=== PATIENT | male | born 1965 | race Caucasian/White ===

== ENCOUNTER 2017-05-09 16:36 | Emergency (ER) | payer MEDICARE ==
[~2017-05-09] VITALS: Ht 170.2 cm; Wt 65.0 kg
[2017-05-09 16:50] VITALS: Ht 170.2 cm; Wt 65.0 kg
[2017-05-09] MEDS ORDERED: LORAZEPAM 1 MG TAB PO ONE (17:00)
--- NOTE | 2017-05-09 17:07 | ERD ---
ER Documentation Chief Complaint Chief Complaint BIB RA FOR EVAL OF ANXIETY NO SI/HI. HX OF PTSD HPI This is a 51-year-old male who presents via EMS stating that he is having a "PTSD cloud ". EMS reports that the patient was in an argument with his earlier today this was a verbal argument. The patient was upset and called them initially. He refused transport. He then called back for transport. The patient states that he needs " my whole body looked ". The patient has a remote history of dialysis he is not currently getting dialysis. The patient's blood pressure was elevated via EMS. He denies any chest pain or shortness of breath, no headache. The patient has chronic blindness in states that his vision is unchanged. He denies any fevers or chills. No suicidal or homicidal ideation. ROS All systems reviewed and are negative except as per history of present illness. Allergies Allergies: Coded Allergies: gabapentin (Verified Allergy, Unknown, 05/09/17) metoclopramide (Verified Allergy, Unknown, 05/09/17) Uncoded Allergies: CONTRAST (Allergy, Unknown, 05/09/17) PMhx/Soc Hypertension, chronic kidney disease FmHx Family History: No diabetes Physical Exam Vitals Vital Signs Date Time Temp Pulse Resp B/P Pulse Ox O2 Delivery O2 Flow Rate FiO2 05/09/17 17:24 75 18 195/108 100 Room Air 05/09/17 16:50 97.5 75 16 210/59 97 Physical Exam General: Well developed, well nourished, no acute distress Head: Normocephalic, atraumatic. Eyes: Changes consistent with chronic blindness ENT: Moist mucous membranes Neck: Supple, no lymphadenopathy Respiratory: Lungs clear bilaterally, no distress Cardiovascular: RRR, no murmurs, rubs, or gallops Abdominal: Soft, non-tender, non-distended, no peritoneal signs : Deferred MSK: No edema, no unilateral swelling, 5/5 strength, left upper extremity AV fistula with bruit and thrill Neurologic: Alert and oriented, moving all extremities, normal speech, no focal weakness, no cerebellar signs Skin: No rash Psych: Extremely anxious mood, no suicidal or homicidal ideation Results 24 hrs Current Medications Medications (Trade) Dose Ordered Sig/Trace Route PRN Reason Start Time Stop Time Status Last Admin Dose Admin Lorazepam (Ativan) 1 mg ONCE ONCE PO 05/09/17 17:00 05/09/17 17:01 DC 05/09/17 16:59 Nicardipine HCl (Cardene) 30 mg ONCE ONCE PO 05/09/17 18:00 05/09/17 18:01 DC 05/09/17 17:40 Procedures/MDM The patient presents for evaluation of anxiety and PTSD exacerbation. It appears this was triggered related to a social issue with his . There is no physical abuse reported. The patient is a very poor historian and uses hyperbole. He states that he is "all alone at home ". However the paramedics report that the patient has regularly scheduled home health care and lives with his . The patient is denying any headache chest pain or shortness of breath. He states compliance with his medication regimen. The only abnormality that I notice from baseline is that his blood pressure is elevated. This is consistent with asymptomatic hypertension. I do not believe this is related to transplant rejection. This seems to be most likely related to the patient's stress and anxiety. The patient does take benzodiazepines at home and I believe a single tablet of Ativan 1 mg p.o. here is appropriate. The patient will be reevaluated for blood pressure improvement. The patient was advised to follow-up with his primary care physician for routine checking of his blood pressure and to re-address the patient's anxiety and psychiatric medications. He does not have any evidence of acute psychosis or need for telemetry medicine psychiatry evaluation. The patient states that he would like to call his uncle to take him home. We have made this phone call and left a message for his uncle , Akshat. I attempted to consult social work who is not available currently. The patient's blood pressure was trending down into the 190s but the patient felt strongly about getting a dose of medication here in the emergency room. He still seems upset and is talking to his on the phone. His is coming to get him. He was given 30 mg of p.o. Cardene with improvement of his blood pressure into the 140s. The patient left prior to being given his discharge paperwork. Departure Diagnosis: Primary Impression: PTSD (post-traumatic stress disorder) Additional Impressions: Stress reaction Asymptomatic hypertension Condition: Stable Patient Instructions: Understanding Post-Traumatic Stress Disorder (PTSD), High Blood Pressure (Hypertension) Referrals: COMMUNITY CLINICS YOU HAVE RECEIVED A MEDICAL SCREENING EXAM AND THE RESULTS INDICATE THAT YOU DO NOT HAVE A CONDITION THAT REQUIRES URGENT TREATMENT IN THE EMERGENCY DEPARTMENT. FURTHER EVALUATION AND TREATMENT OF YOUR CONDITION CAN WAIT UNTIL YOU ARE SEEN IN YOUR DOCTORS OFFICE WITHIN THE NEXT 1-2 DAYS. IT IS YOUR RESPONSIBILITY TO MAKE AN APPOINTMENT FOR FOLOW-UP CARE. IF YOU HAVE A PRIMARY DOCTOR --you should call your primary doctor and schedule an appointment IF YOU DO NOT HAVE A PRIMARY DOCTOR YOU CAN CALL OUR PHYSICIAN REFERRAL HOTLINE AT IF YOU CAN NOT AFFORD TO SEE A PHYSICIAN YOU CAN CHOSE FROM THE FOLLOWING [facility] CLINICS [facility] [address] [facility] [address] [facility] [facility] [address] [facility] [address] [facility] [address] [facility]. [facility] [address] [facility]. [facility] YOU HAVE RECEIVED A MEDICAL SCREENING EXAM AND THE RESULTS INDICATE THAT YOU DO NOT HAVE A CONDITION THAT REQUIRES URGENT TREATMENT IN THE EMERGENCY DEPARTMENT. FURTHER EVALUATION AND TREATMENT OF YOUR CONDITION CAN WAIT UNTIL YOU ARE SEEN IN YOUR DOCTORS OFFICE WITHIN THE NEXT 1-2 DAYS. IT IS YOUR RESPONSIBILITY TO MAKE AN APPOINTMENT FOR FOLOW-UP CARE. IF YOU HAVE A PRIMARY DOCTOR --you should call your primary doctor and schedule and appointment IF YOU DO NOT HAVE A PRIMARY DOCTOR YOU CAN CALL OUR PHYSICIAN REFERRAL HOTLINE AT . IF YOU CAN NOT AFFORD TO SEE A PHYSICIAN YOU CAN CHOSE FROM THE FOLLOWING [facility] INSTITUTIONS: [facility] [address] [place] [address] [facility] [address] [place] [address] [facility] + [facility] [address] [place] [address] Additional Instructions: Please follow up with your PMD and discuss your medications. Return sooner for thoughts of harming yourself or others. SABINE BOO MD May 09, 2017 17:07
[2017-05-09 18:00] VITALS: BP 140/80; PULSE 75; RESP 16
[2017-05-09] MEDS ORDERED: NICARDipine HCL 30 MG CAPSULE PO ONE (18:00)
== END 2017-05-09 18:16 | disposition home or self-care (01) ==
LOC: E/R 16:36
DX: F43.10 Post-traumatic stress disorder, unspecified (principal); F43.9 Reaction to severe stress, unspecified; I12.9 Hypertensive chronic kidney disease with stage 1 through stage 4 chronic kidney disease, or unspecified chronic kidney disease; N18.9 Chronic kidney disease, unspecified
CPT/HCPCS: 99284

== ENCOUNTER 2018-10-02 20:22 | Observation (INO) | payer MEDICARE, OTHER ==
[~2018-10-02] VITALS: Ht 170.2 cm; Wt 78.0 kg
--- NOTE | 2018-10-02 22:44 | ERD ---
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 No associated shortness breath diaphoresis nausea vomiting fevers or chills. Denies any positional or exertional component to the pain. Denies any other current issues. ROS All systems reviewed and are negative except as per history of present illness. Allergies Allergies: Coded Allergies: gabapentin (Verified Allergy, Unknown, 05/09/17) metoclopramide (Verified Allergy, Unknown, 05/09/17) Uncoded Allergies: CONTRAST (Allergy, Unknown, 05/09/17) PMhx/Soc History of Surgery: Yes (KIDNEY & PANCREATIC TRANSPLANT, EYE SX) Anesthesia Reaction: No Hx Neurological Disorder: Yes (NEUROPATHY, EPILEPSY) Hx Respiratory Disorders: No Hx Cardiac Disorders: Yes (HTN) Hx Psychiatric Problems: No Hx Miscellaneous Medical Probl: Yes (DM, LEGALLY BLIND) Hx Alcohol Use: No Hx Substance Use: No Hx Tobacco Use: No Smoking Status: Never smoker Physical Exam Vitals Vital Signs Date Temp Pulse Resp B/P (MAP) Pulse Ox O2 O2 Flow FiO2 Time Delivery Rate 10/02/18 72 17 178/88 99 Room Air 20:45 (118) 10/02/18 97.9 70 20 182/94 100 20:35 (123) Physical Exam Const: No acute distress Head: Atraumatic Eyes: Normal Conjunctiva ENT: Normal External Ears, Nose and Mouth. Neck: Full range of motion. No meningismus. Resp: Clear to auscultation bilaterally Cardio: Regular rate and rhythm, no murmurs Abd: Soft, non tender, non distended. Normal bowel sounds Skin: No petechiae or rashes Back: No midline or flank tenderness Ext: No cyanosis, or edema Neur: Awake and alert Psych: Normal Mood and Affect Result Diagram: 10/02/18205310/02/182053 Results 24 hrs Laboratory Tests Test 10/02/18 20:54 White Blood Count 9.7 10^3/ul Red Blood Count 4.94 10^6/ul Hemoglobin 14.2 g/dl Hematocrit 46.4 % Mean Corpuscular Volume 93.9 fl Mean Corpuscular Hemoglobin 28.7 pg Mean Corpuscular Hemoglobin Concent 30.6 g/dl Red Cell Distribution Width 15.0 % Platelet Count 220 10^3/UL Mean Platelet Volume 11.1 fl Immature Granulocytes % 0.400 % Neutrophils % 75.6 % Lymphocytes % 15.1 % Monocytes % 8.2 % Eosinophils % 0.5 % Basophils % 0.2 % Nucleated Red Blood Cells % 0.0 /100WBC Immature Granulocytes # 0.040 10^3/ul Neutrophils # 7.3 10^3/ul Lymphocytes # 1.5 10^3/ul Monocytes # 0.8 10^3/ul Eosinophils # 0.1 10^3/ul Basophils # 0.0 10^3/ul Nucleated Red Blood Cells # 0.0 10^3/ul Sodium Level 142 mmol/L Potassium Level 5.6 mmol/L Chloride Level 106 mmol/L Carbon Dioxide Level 28 mmol/L Anion Gap 8 Blood Urea Nitrogen 33 mg/dl Creatinine 1.57 mg/dl Est Glomerular Filtrat Rate mL/min 47 mL/min Glucose Level 118 mg/dl Calcium Level 10.5 mg/dl Troponin I 0.035 ng/ml Procedures/MDM Emergency room course: Patient Jannette charges. Placed in bed from evaluation. A stat EKG and stat chest x-ray. Placed on continuous cardiac monitoring. Chest X-ray 1V Interpreted by me: Soft Tissue: No acute abnormalities Bones: No acute abnormalities Mediastinum/Cardiac Silhouette/Lungs: [No acute abnormalities] EKG: Rate/Rhythm: [Normal Sinus Rhythm] QRS, ST, T-waves: [No changes consistent w/ acute ischemia] Impression: [No evidence of ischemia or arrhythmia] Patient's symptoms are concerning for cardiac cause will require inpatient workup and continuous monitoring. Further w/u for ischemia, arrhythmia, PE or dissection will be deferred to the inpatient team. Accepting Care Team: Current data and ongoing care discussed. Time: 10 PM Primary Provider: Hospitalist Consulting: Deferred to inpatient team Outstanding Data: none Departure Diagnosis: Primary Impression: Chest pain Chest pain type: unspecified Qualified Codes: R07.9 - Chest pain, unspecified Condition: Serious DANIELPARISHFRIDADANNYAdan Oct 02, 2018 22:44
[2018-10-02 23:15] VITALS: BP 196/91; PULSE 66; RESP 20
[2018-10-02 23:25] VITALS: PULSE 68
[2018-10-02 23:33] VITALS: Ht 170.2 cm; Wt 78.0 kg
--- NOTE | 2018-10-02 23:55 | HP ---
Date/Time of Note Date/Time of Note DATE: 10/02/18 TIME: 23:55 Assessment/Plan VTE Prophylaxis Pharmacological prophylaxis: heparin Lines/Catheters IV Catheter Type (from Nrsg): Saline Lock Assessment/Plan Assessment/Plan 1. Chest pain/discomfort: Rule out ACS -First troponin and EKG nondiagnostic -Serial troponin -2D echo cardiology consult -Aspirin, sedated nitro. No beta-juancho given heart rate sometimes in the lower side. -Check A1c, fasting lipid and TSH in a.m. 2. History of diabetes: Check A1c 3. Hypertension: Adjust antihypertensives as needed 4. Presumed CKD -Pt is s/p kidney transplant. He used to be on dialysis -Will hydrate for possible acute component -Renal ultrasound and nephrology consult as needed -He has an appt today with his back facer at [facility] and he wants someone to call them 5. 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 -Patient reported "petit seizure" prior to chest discomfort -continue home meds -Neurology consult as needed 6. history of Pancreatic transplant; no acute issue 7. Legally blind; supportive care Result Diagram: 10/02/18205310/02/182053 Results 24hrs Laboratory Tests Test 10/02/18 20:54 White Blood Count 9.7 Red Blood Count 4.94 Hemoglobin 14.2 Hematocrit 46.4 Mean Corpuscular Volume 93.9 Mean Corpuscular Hemoglobin 28.7 L Mean Corpuscular Hemoglobin Concent 30.6 L Red Cell Distribution Width 15.0 H Platelet Count 220 Mean Platelet Volume 11.1 H Immature Granulocytes % 0.400 Neutrophils % 75.6 Lymphocytes % 15.1 Monocytes % 8.2 Eosinophils % 0.5 Basophils % 0.2 Nucleated Red Blood Cells % 0.0 Immature Granulocytes # 0.040 H Neutrophils # 7.3 Lymphocytes # 1.5 Monocytes # 0.8 Eosinophils # 0.1 Basophils # 0.0 Nucleated Red Blood Cells # 0.0 Sodium Level 142 Potassium Level 5.6 H Chloride Level 106 Carbon Dioxide Level 28 Anion Gap 8 Blood Urea Nitrogen 33 H Creatinine 1.57 H Est Glomerular Filtrat Rate mL/min 47 L Glucose Level 118 Calcium Level 10.5 H Troponin I 0.035 HPI/ROS Admit Date/Time Admit Date/Time Oct 02, 2018 at 22:05 Hx of Present Illness This is a 53-year-old male with a history of hypertension, diabetes, seizure, kidney, pancreas transplant, spinal surgery and "heart attacks"who presents the ER complaining of chest discomfort. It started a few hours before arrival to the ER when he woke-up from sleep. He said he felt like he had a "petit seizure and then felt his heart "seizing and throbbing. Denied shortness of breath, nausea/vomiting or diaphoresis. And presented to ER, vitals were stable. First troponin is negative and EKG without ST-T wave abnormalities. PMH/Family/Social Past Medical History Medical History: other (See HPI) Coded Allergies: gabapentin (Verified Allergy, Unknown, 05/09/17) metoclopramide (Verified Allergy, Unknown, 05/09/17) Uncoded Allergies: CONTRAST (Allergy, Unknown, 05/09/17) Past Surgical History Past Surgical Hx: other (See HPI) Family History Significant Family History: no pertinent family hx Social History Alcohol Use: none Smoking Status: Never smoker Drug Use: none Exam/Review of Systems Vital Signs Vitals Vital Signs Date Temp Pulse Resp B/P (MAP) Pulse Ox O2 O2 Flow FiO2 Time Delivery Rate 10/02/18 68 23:25 10/02/18 18 145/68 97 Room Air 23:00 (93) 10/02/18 97.9 20:35 Exam Constitutional: alert, oriented, well developed Head: normocephalic, atraumatic Eyes: other (blind) Respiratory: clear to auscultation, normal air movement Cardiovascular: regular rate and rhythm Gastrointestinal: soft Extremities: normal pulses DANNY LAKE MD Oct 02, 2018 23:55
[2018-10-03] VITALS (10 sets, daily range): BP systolic 133–150; BP diastolic 67–82; PULSE 56–64; RESP 18–20
[2018-10-03] MEDS ORDERED: NITROGLYCERIN (SL) 0.4 MG TAB SL PRN
[2018-10-03] MEDS ORDERED: ONDANSETRON 4 MG INJ IV PRN
[2018-10-03] MEDS ORDERED: ACETAMINOPHEN 325 MG TAB PO PRN
[2018-10-03] MEDS ORDERED: ALBUTEROL/IPRATROPIUM (NEB) 3 ML AMP HHN PRN
[2018-10-03] MEDS ORDERED: NACL 0.9% 3 ML SYG IV SCH
[2018-10-03] MEDS ORDERED: ALPRAZOLAM 1 MG TAB PO ONE (01:00)
[2018-10-03] MEDS ORDERED: hydrALAzine 20 MG INJ IV ONE (01:00)
[2018-10-03] MEDS ORDERED: NA POLYST SULFON 15 GM/60 ML BTL PO ONE (01:30)
[2018-10-03] MEDS ORDERED: OXYCODONE/ACETAMINOPHEN (5/325) TAB PO ONE (03:00)
[2018-10-03] MEDS ORDERED: ASPIRIN 81 MG TAB PO SCH (09:00)
[2018-10-03] MEDS ORDERED: HEPARIN 5,000 UNIT/1 ML VIAL SC SCH (09:00)
[2018-10-03] MEDS ORDERED: ASPI-818 PO (09:14)
[2018-10-03] MEDS ORDERED: LANS30CA PO (09:14)
[2018-10-03] MEDS ORDERED: CLOP75TA27 PO (09:14)
[2018-10-03] MEDS ORDERED: LEVO5TAB28 PO (09:14)
[2018-10-03] MEDS ORDERED: CYCL100C20 PO (09:14)
[2018-10-03] MEDS ORDERED: ALPR1TAB2 PO (09:14)
[2018-10-03] MEDS ORDERED: MYCO250C3 PO (09:14)
[2018-10-03] MEDS ORDERED: LEVE750T70 PO (09:14)
[2018-10-03] MEDS ORDERED: LUBI24CA7 PO (09:14)
[2018-10-03] MEDS ORDERED: TEST75GE7 TD (09:14)
[2018-10-03] MEDS ORDERED: ASPIRIN (EC) 81 MG TAB PO SCH (11:00)
[2018-10-03] MEDS ORDERED: CYCLOSPORINE MICROEMULS 100 MG CAP PO SCH ×2 (11:00→12:30)
[2018-10-03] MEDS ORDERED: CLOPIDOGREL 75 MG TAB PO SCH (11:00)
[2018-10-03] MEDS ORDERED: ALPRAZOLAM 1 MG TAB PO PRN (11:00)
[2018-10-03] MEDS ORDERED: MYCOPHENOLATE 250 MG CAP PO SCH (12:30)
[2018-10-03] MEDS ORDERED: LEVETIRACETAM 750 MG TAB PO SCH (12:30)
[2018-10-03] MEDS ORDERED: CYCLOSPORINE MICROEMULS 25 MG CAP PO SCH (12:30)
--- NOTE | 2018-10-03 14:18 | RADRPT ---
Echocardiogram Report Patient Name: PIOTR DUDLEYPatient ID: [id number] : 1965 (53y 2m)Study Date: 10/03/2018 8:28:26 AM Gender: MAccession #: [id number] Tech: Howard Gordon [facility] Location: [facility] Ref.Physician: DANNY LAKE Height(Cm): BSA: Weight(Kg): Quality: AdequateAccount #: Procedures: Echocardiographic Report: Transthoracic echocardiogram with complete 2D, M-Mode, and doppler examination. Indications: Chest Pain. Measurements: 2D/M Mode Doppler Measurement Value Normal Range Measurement Value Normal Range LVIDd 2D 5.1 [ 4.2 - 5.8 ] cm AV Peak Garrett 1.5 [ 100.0 - 170.0 ] cm/sec LVIDs 2D 3.2 [ 2.5 - 4.0 ] cm AV Peak PG 9.0 [ 2.0 - 9.0 ] mmHg LVPWd 2D 1.1 [ 0.6 - 1.0 ] cm LVOT Peak Garrett 1.2 [ 70.0 - 110.0 ] cm/sec IVSd 2D 1.1 [ 0.6 - 1.0 ] cm LVOT Peak PG 6.0 [ 2.0 - 6.0 ] mmHg AoR Diam 2D 2.3 [ 2.6 - 3.4 ] cm MV E Peak Garrett 1.3 [ 60.0 - 130.0 ] cm/sec EDV 2D 126.0 [ 62.0 - 150.0 ] ml MV A Peak Garrett 0.5 [ 100.0 - 120.0 ] cm/sec ESV 2D 41.3 [ 21.0 - 61.0 ] ml MV E/A 2.7 [ 0.8 - 1.5 ] ratio EF 2D 67.2 [ 52.0 - 72.0 ] percent MV Decel Time 211 [ 104 - 258 ] msec LA Dimen 2D 3.9 [ 3.0 - 4.0 ] cm Lat E` Garrett 0.1 [ 10.0 - 15.0 ] cm/sec Lateral E/E` 23.0 [ 1.0 - 2.0 ] ratio MV E/A 2.7 [ 0.8 - 1.5 ] ratio TR Peak Garrett 2.9 [ 100.0 - 280.0 ] cm/sec TR Peak PG 34.0 mmHg RVSP 44.0 [ 10.0 - 36.0 ] mmHg Findings: Left Ventricle: Normal left ventricular systolic function. Normal left ventricular cavity size. Left ventricular wall thickness upper limits of normal. Ejection fraction is visually estimated at 55 %. Tissue Doppler/Mitral Doppler indices are consistent with impaired relaxation (Stage I diastolic dysfunction). Right Ventricle: Normal right ventricular size. Normal right ventricular systolic function. Left Atrium: The left atrium is normal in size. Right Atrium: The right atrium is normal in size. Mitral Valve: Mild mitral leaflet calcification. Mild mitral annular calcification. Trace mitral regurgitation. Aortic Valve: No hemodynamically significant aortic stenosis by doppler. Aortic cusps appear mildly calcified. Tricuspid Valve: Normal appearance of the tricuspid valve. Estimated peak PA systolic pressure 44 mmHg. There is mild tricuspid regurgitation. Pericardium: Normal pericardium with no significant pericardial effusion. Aorta: Normal aortic root. IVC: Normal size and normal respiratory collapse consistent with normal right atrial pressure. Conclusions: Normal left ventricular systolic function. Normal left ventricular cavity size. Left ventricular wall thickness upper limits of normal. Ejection fraction is visually estimated at 55 %. Tissue Doppler/Mitral Doppler indices are consistent with impaired relaxation (Stage I diastolic dysfunction). Mild mitral leaflet calcification. Mild mitral annular calcification. Trace mitral regurgitation. No hemodynamically significant aortic stenosis by doppler. Aortic cusps appear mildly calcified. Normal appearance of the tricuspid valve. Estimated peak PA systolic pressure 44 mmHg. There is mild tricuspid regurgitation. Electronically Signed By: Shiv Hurt 2018-10-03 14:17:03 PDT
--- NOTE | 2018-10-03 14:40 | CONDCODE ---
Medicare Criteria-> INP to OBS Patient still in hospital: Yes SI/IS Criteria met: Yes Attending MD agrees w/change: Yes Order entered in Pt. record: Yes Pt. does not meet Inp Criteria: Yes Medicare Inp->Obs Criteria met: Yes UR Phys Advisor eSign required: Yes I personally scribed for RYANNE NIEVES MD ([email or web address]) on 10/03/18 at 14:40. Electronically submitted by [facility] ([email or web address]). RYANNE NIEVES MD Oct 03, 2018 14:40
[2018-10-03] MEDS ORDERED: SOD CHLORIDE 0.9% 1,000 ML IV SCH (15:00)
--- NOTE | 2018-10-03 15:28 | CONS ---
Assessment/Plan Assessment/Plan Problems: (1) CKD stage 3 secondary to diabetes Comment: is at his baseline (2) HTN (hypertension) Comment: is controlled on meds (3) Kidney transplant recipient Comment: meds written.. s/p LURKTx in 2014 (4) Pancreas transplant status Comment: s/p combined pktx in .. panc still fxn well (5) Chest pain Status: Acute Comment: s/p r/o [place].. s/p recent stress test at [facility] in Jul that is unchanged from his baseline tests in yrs past...... does have known ASHD s/p mult PCI/stents in the past Qualifiers: Qualified Codes: R07.9 - Chest pain, unspecified Consultation Date/Type/Reason Admit Date/Time Oct 02, 2018 at 22:05 Type of Consult Nephrology Date/Time of Note DATE: 10/03/18 TIME: 15:19 Hx of Present Illness This patient has long standing DM, and is s/p combined Panc-Kidney transplantation at [facility] in 1999. He returned to HD in 2009, then re ceived a LURKTx in thru paired exchange. He has done well since, with baseline Cr 1.3-1.5. Of note he recently had a cardiac stress test at [facility] in Jul of this yr, that was unchanged from ... 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 no other changed vs prior stress tests. He was admitted last night following an episode of cp. His troponins x 3 are (- ), and EKGs are without acute changes. he currently is resting, and is in NAD. Creatinine is at his baseline Past Medical History Home Meds Reported Medications Lansoprazole* (Lansoprazole*) 30 Mg Capsule., 30 MG PO BID, CAP 10/03/18 Testosterone (Testosterone) 75 Gm Gel..assembler for puller over hand, 75 GM TD DAILY 10/03/18 Alprazolam* (Xanax*) 1 Mg Tab, 1 MG PO TID PRN for ANXIETY, TAB 10/03/18 Lubiprostone* (Amitiza*) 24 Mcg Capsule, 24 MCG PO BID, #60 CAP 10/03/18 Levocetirizine Dihydrochloride (Xyzal) 5 Mg Tablet, 5 MG PO QPM, TAB 10/03/18 Cyclosporine* (Neoral*) 100 Mg Cap, 150 MG PO BID, CAP 10/03/18 Mycophenolate Mofetil* (Cellcept*) 250 Mg Capsule, 750 MG PO BID, CAP 10/03/18 Clopidogrel Bisulfate (Clopidogrel) 75 Mg Tablet, 75 MG PO DAILY, #30 TAB 10/03/18 Aspirin (Aspirin Low Dose) 81 Mg Tablet.dr, 81 MG PO DAILY, #30 TAB 10/03/18 Levetiracetam* (Keppra*) 750 Mg Tablet, 750 MG PO BID, TAB 10/03/18 Medications Current Medications IV Flush (NS 3 ml) 3 ml PER PROTOCOL IV ; Start 10/03/18 at 00:00 Ondansetron HCl (Zofran Inj) 4 mg Q6H PRN IV NAUSEA/VOMITING; Start 10/03/18 at 00:00 Aspirin (Aspirin) 81 mg DAILY PO Last administered on 10/03/18at 09:16; Admin Dose 81 MG; Start 10/03/18 at 09:00 Nitroglycerin (Nitroglycerin (Sl Tab) 0.4 Mg) 1 tab Q5M PRN SL .CHEST PAIN; S tart 10/03/18 at 00:00 Acetaminophen (Tylenol Tab) 650 mg Q6H PRN PO .PAIN 1-3 OR TEMP; Start 10/03/18 at 00:00 Heparin Sodium (Porcine) (Heparin (5000 Units/1ml)) 5,000 unit Q12 SC ; Start 10/03/18 at 09:00 Albuterol/ Ipratropium (Duoneb) 3 ml Q2H RESP THERAPY PRN HHN SHORTNESS OF BREATH; Start 10/03/18 at 00:00 Alprazolam (Xanax) 1 mg TID PRN PO ANXIETY Last administered on 10/03/18at 11:37; Admin Dose 1 MG; Start 10/03/18 at 11:00 Aspirin (Halfprin) 81 mg DAILY PO ; Start 10/03/18 at 11:00 Clopidogrel Bisulfate (plaVIX) 75 mg DAILY PO Last administered on 10/03/18at 11:37; Admin Dose 75 MG; Start 10/03/18 at 11:00 Lansoprazole (Prevacid) 30 mg BID@0600,1800 PO ; Start 10/03/18 at 18:00 Levetiracetam (Keppra) 750 mg BID PO Last administered on 10/03/18at 12:35; Admin Dose 750 MG; Start 10/03/18 at 12:30 Lubiprostone (Amitiza) 24 mcg BID PO ; Start 10/03/18 at 21:00 Mycophenolate Mofetil (Cellcept) 750 mg BID PO ; Start 10/03/18 at 12:30 Carvedilol (Coreg) 3.125 mg BID PO ; Start 10/03/18 at 21:00 Cyclosporine (Neoral) 100 mg BID PO ; Start 10/03/18 at 12:30 Cyclosporine (Neoral) 50 mg BID PO ; Start 10/03/18 at 12:30 Loratadine (Claritin) 10 mg HS PO ; Start 10/03/18 at 21:00 Sodium Chloride 1,000 ml @ 250 mls/hr Q4H IV ; Start 10/03/18 at 15:00; Stop 10/03/18 at 18:59 Allergies: Coded Allergies: gabapentin (Verified Allergy, Unknown, 05/09/17) metoclopramide (Verified Allergy, Unknown, 05/09/17) Uncoded Allergies: CONTRAST (Allergy, Unknown, 05/09/17) Past Surgical History Past Surgical Hx: other (See HPI) Social History Alcohol Use: none Smoking Status: Never smoker Drug Use: none Exam/Review of Systems Vital Signs Vitals Vital Signs Date Temp Pulse Resp B/P (MAP) Pulse Ox O2 O2 Flow FiO2 Time Delivery Rate 10/03/18 57 12:07 10/03/18 97.9 20 150/72 96 11:30 (98) 10/02/18 Room Air 23:00 Exam Constitutional: alert, oriented, well developed Psych: no complaints Head: normocephalic 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) Neck: supple, non-tender Respiratory: clear to auscultation, normal air movement Cardiovascular: regular rate and rhythm Gastrointestinal: soft, nl liver, spleen Extremities: edema (none) Labs Result Diagram: 10/03/1822210/03/18222 Results 24hrs Laboratory Tests Test 10/02/18 20:54 10/03/18 02:23 10/03/18 08:13 White Blood Count 9.7 9.8 Red Blood Count 4.94 4.62 L Hemoglobin 14.2 13.4 L Hematocrit 46.4 43.5 Mean Corpuscular Volume 93.9 94.2 Mean Corpuscular Hemoglobin 28.7 L 29.0 Mean Corpuscular Hemoglobin Concent 30.6 L 30.8 L Red Cell Distribution Width 15.0 H 15.2 H Platelet Count 220 212 Mean Platelet Volume 11.1 H 11.5 H Immature Granulocytes % 0.400 0.400 Neutrophils % 75.6 65.1 Lymphocytes % 15.1 23.5 Monocytes % 8.2 9.8 Eosinophils % 0.5 0.9 Basophils % 0.2 0.3 Nucleated Red Blood Cells % 0.0 0.0 Immature Granulocytes # 0.040 H 0.040 H Neutrophils # 7.3 6.4 Lymphocytes # 1.5 2.3 Monocytes # 0.8 1.0 H Eosinophils # 0.1 0.1 Basophils # 0.0 0.0 Nucleated Red Blood Cells # 0.0 0.0 Sodium Level 142 142 Potassium Level 5.6 H 4.6 Chloride Level 106 109 Carbon Dioxide Level 28 26 Anion Gap 8 7 Blood Urea Nitrogen 33 H 31 H Creatinine 1.57 H 1.49 H Est Glomerular Filtrat Rate mL/min 47 L 50 L Glucose Level 118 93 Calcium Level 10.5 H 10.1 Troponin I 0.035 0.055 0.073 Hemoglobin A1c 5.1 Magnesium Level 2.0 Total Bilirubin 0.3 Direct Bilirubin 0.00 Indirect Bilirubin 0.3 Aspartate Amino Transf (AST/SGOT) 21 Alanine Aminotransferase (ALT/SGPT) 25 Alkaline Phosphatase 91 Creatine Kinase 42 34 Creatine Kinase Index 3.3 4.7 Creatinine Kinase MB (Mass) 1.39 1.60 Total Protein 6.4 Albumin 3.9 Globulin 2.50 Albumin/Globulin Ratio 1.56 Triglycerides Level 81 Cholesterol Level 94 L LDL Cholesterol, Calculated 35 HDL Cholesterol 43 Cholesterol/HDL Ratio 2.1 Thyroid Stimulating Hormone (TSH) 1.780 Medications Medications Current Medications IV Flush (NS 3 ml) 3 ml PER PROTOCOL IV ; Start 10/03/18 at 00:00 Ondansetron HCl (Zofran Inj) 4 mg Q6H PRN IV NAUSEA/VOMITING; Start 10/03/18 at 00:00 Aspirin (Aspirin) 81 mg DAILY PO Last administered on 10/03/18at 09:16; Admin Dose 81 MG; Start 10/03/18 at 09:00 Nitroglycerin (Nitroglycerin (Sl Tab) 0.4 Mg) 1 tab Q5M PRN SL .CHEST PAIN; Start 10/03/18 at 00:00 Acetaminophen (Tylenol Tab) 650 mg Q6H PRN PO .PAIN 1-3 OR TEMP; Start 10/03/18 at 00:00 Heparin Sodium (Porcine) (Heparin (5000 Units/1ml)) 5,000 unit Q12 SC ; Start 10/03/18 at 09:00 Albuterol/ Ipratropium (Duoneb) 3 ml Q2H RESP THERAPY PRN HHN SHORTNESS OF BREATH; Start 10/03/18 at 00:00 Alprazolam (Xanax) 1 mg TID PRN PO ANXIETY Last administered on 10/03/18at 11:37; Admin Dose 1 MG; Start 10/03/18 at 11:00 Aspirin (Halfprin) 81 mg DAILY PO ; Start 10/03/18 at 11:00 Clopidogrel Bisulfate (plaVIX) 75 mg DAILY PO Last administered on 10/03/18at 11:37; Admin Dose 75 MG; Start 10/03/18 at 11:00 Lansoprazole (Prevacid) 30 mg BID@0600,1800 PO ; Start 10/03/18 at 18:00 Levetiracetam (Keppra) 750 mg BID PO Last administered on 10/03/18at 12:35; Admin Dose 750 MG; Start 10/03/18 at 12:30 Lubiprostone (Amitiza) 24 mcg BID PO ; Start 10/03/18 at 21:00 Mycophenolate Mofetil (Cellcept) 750 mg BID PO ; Start 10/03/18 at 12:30 Carvedilol (Coreg) 3.125 mg BID PO ; Start 10/03/18 at 21:00 Cyclosporine (Neoral) 100 mg BID PO ; Start 10/03/18 at 12:30 Cyclosporine (Neoral) 50 mg BID PO ; Start 10/03/18 at 12:30 Loratadine (Claritin) 10 mg HS PO ; Start 10/03/18 at 21:00 Sodium Chloride 1,000 ml @ 250 mls/hr Q4H IV ; Start 10/03/18 at 15:00; Stop 10/03/18 at 18:59 HELENA BHANDARI MD Oct 03, 2018 15:28
--- NOTE | 2018-10-03 16:14 | CONDCODE ---
Medicare Criteria-> INP to OBS Patient still in hospital: Yes SI/IS Criteria met: Yes Attending MD agrees w/change: Yes Order entered in Pt. record: Yes Pt. does not meet Inp Criteria: Yes Medicare Inp->Obs Criteria met: Yes UR Phys Advisor eSign required: Yes I personally scribed for HELENA BHANDARI MD ([email or web address]) on 10/03/18 at 16:14. Electronically submitted by [facility] ([facility]). HELENA BHANDARI MD Oct 03, 2018 16:14
[2018-10-03] MEDS ORDERED: CARV3.1260 PO (17:35)
--- NOTE | 2018-10-03 17:46 | PDOCDIS ---
Discharge Instructions CONDITION [id number] Patient Condition: [id number] Stable HOME CARE INSTRUCTIONS: [id number] Diet Instructions: [id number] Low Fat /Cholesterol Pjycy5Hc Special Diet: Szpsu1a carb controlled, ACTIVITY: [id number] Activity Restrictions: [id number] Slowly Increase Activity Rest between Activity FOLLOW UP/APPOINTMENTS Follow-up Plan followup with your PCP to ensure your creatinine levels stay within goal next week at the latest. stay hydrated and compliant with your meds ESTEFANIA GARCIA Oct 03, 2018 17:46
[2018-10-03] MEDS ORDERED: LANSOPRAZOLE 30 MG CAP PO SCH (18:00)
--- NOTE | 2018-10-03 18:46 | DS ---
DATE OF ADMISSION: 10/02/2018 DATE OF DISCHARGE: 10/03/2018 PRESENTING COMPLAINT: Absence seizure and left-sided chest pain. HISTORY OF PRESENTING COMPLAINT AND HOSPITAL COURSE: Full details are available in the chart for review. In summary, this is a 53-year-old male who has a history of high blood pressure and a remote history of diabetes for which he is status post kidney and pancreatic transplant back in 1999 and has subsequent repeat kidney transplant after his both kidneys failed in 2009. The patient's baseline creatinine falls between 1.3 and 1.5. He also recently had his cardiac stress test this year a month ago and that was unchanged showing of old infarct but no other change per again report. The patient has had a history of coronary artery disease and has required 5 stents in the past. Apparently, according to the patient he has been under in a lot of stress from issues with his ex- having to go to court multiple times and so because of that, he has been noncompliant with his seizure medication. He takes Keppra twice a day for absence seizures and does admit that he had been noncompliant. Yesterday, he had known that he was about to have the seizure and he did have an episode where he feels that he passed out and when he came to again, he was having some significant chest discomfort with shortness of breath and so he called his primary doctor who recommended to call the ambulance to come to the emergency room. In the emergency room, he was assessed and he was admitted for further workup and so far workup has been negative without evidence of acute myocardial infarction. He has ruled out with 3 negative cardiac enzymes. He did have a 2D echocardiogram that showed ejection fraction of 55% with stage I diastolic dysfunction without significant valvular abnormality and estimated peak PA systolic pressure of 44. He was monitored on telemetry the whole time. He did have some PVCs but not being sustained. When he came in, he was mildly hyperkalemic to 5.6 but this has resolved and also when he came in, his creatinine was 1.5 which has improved by 0.1 to 1.49. Lipid profile was unremarkable. Hemoglobin A1c is 5.1. Of note is that patient has been cured of diabetes since his pancreatic transplant.. He understands his problem and did give me full history. He desires to be discharged today. I did explain to him that if his baseline creatinine is between 1.3 to 1.5, it may benefit him to stay 1 more day to ensure his creatinine does continue to trend down; however, the patient assures me that he has a followup appointment with his doctors at [facility] next week and he will ensure he stays hydrated and had to ensure everything is fine. He does tell me that he had not been drinking as he should due to the stressors, but he really would like to be discharged today and to follow up as an outpatient. He does understand that my concern is the kidney function. He does state that this is his second kidney and it is up to him to make sure he does not reject especially as his kidney was from a living donor. He understands the risks which the patient believes but his baseline creatinine is between 1.2 and 1.5 and as such, he does want to be discharged. He does say that he has no further chest pain and that his chest pain was more musculoskeletal in origin and did not seem like his prior chest pain with prior heart attacks. He feels like he must have strained the muscle when he had the seizure and chest pain is much better at this time. I reviewed nephrology notes and the patient is stabled for discharge. I also did a telephone conversation with the on-call patient information coordinator and I let him know the patient had stress test a month ago that did not show any acute infarct and based on that he felt that if the patient desired it, he was stable for outpatient followup. The patient is stable for discharge to follow up with outpatient cardiology. At this time, the patient has been assessed in detail by myself. We will go ahead and discharge him in stable condition with the condition that he will follow up with his primary care doctor or patient information coordinator next week and the patient has assured me of this. FINAL DIAGNOSES: 1. Chest pain: Resolved likely musculoskeletal, status post acute coronary syndrome rule out. 2. Chronic kidney disease status post kidney transplant x2 with the patient back to baseline creatinine. 3. History of seizure disorder with breakthrough seizures secondary to noncompliance. 4. Hypertension with improved control. 5. Remote history of diabetes now, status post pancreatic transplant. 6. Legally likely due to diabetic retinopathy. DISCHARGE CONDITION: Stable. ACTIVITY: As tolerated. DIET: A 1800-calorie, low cholesterol, low fat diet. FOLLOWUP: With primary care doctor next week. Time spent on discharge coordination has been more than 1 hour. Dictated By: ESTEFANIA GARCIA MD BA/NTS Conf#: [id number] [facility]#: [id number] CC: DANNY LAKE MD;*EndCC* MTDD
[2018-10-03] MEDS ORDERED: LORATADINE 10 MG TAB PO SCH (21:00)
[2018-10-03] MEDS ORDERED: LUBIPROSTONE 24 MCG CAP PO SCH (21:00)
[2018-10-03] MEDS ORDERED: NON-FORMULARY/PATIENT OWN MED (Levocetirizine Dihydrochloride (Xyzal) 5 MG) PO SCH (21:00)
== END 2018-10-03 19:00 | disposition home or self-care (01) ==
LOC: E/R 20:22 → INTOOBSV 22:05 → TEL 22:05
PROVIDERS: ADMIT Internal Medicine; ATTEND Internal Medicine
DX: R07.9 Chest pain, unspecified (principal); G40.909 Epilepsy, unspecified, not intractable, without status epilepticus; E11.22 Type 2 diabetes mellitus with diabetic chronic kidney disease; I12.9 Hypertensive chronic kidney disease with stage 1 through stage 4 chronic kidney disease, or unspecified chronic kidney disease; N18.3 Chronic kidney disease, stage 3 (moderate); Z94.83 Pancreas transplant status; Z94.0 Kidney transplant status
CPT/HCPCS: 36415; 71045; 80048; 80053; 80061; 82550; 82553; 83036; 83735; 84443; 84484; 85025; 93005; 93306; 99285; G0378; J0360; J7030; J7515; J7517; 99217; J1644

== ENCOUNTER 2019-02-19 20:41 | Emergency (ER) | payer MEDICARE, OTHER ==
[~2019-02-19] VITALS: Ht 167.6 cm; Wt 70.5 kg
[~2019-02-19 20:41] MED LIST: ALPR1TAB2 PO; ASPI-818 PO; CARV3.1260 PO; CLOP75TA27 PO; CYCL100C20 PO; LANS30CA PO; LEVE750T70 PO; LEVO5TAB28 PO; LUBI24CA7 PO; MYCO250C3 PO; TEST75GE7 TD; lidocaine patch
[2019-02-19 20:46] VITALS: PULSE 74; Ht 167.6 cm; Wt 70.5 kg
[2019-02-19] MEDS ORDERED: LORAZEPAM 0.5 MG TAB PO ONE (23:00)
[2019-02-19] MEDS ORDERED: LIDOCAINE 5% PATCH TD ONE (23:00)
[2019-02-20] MEDS ORDERED: HYDROCODONE/APAP (5/325) TAB PO ONE (00:30)
[2019-02-20] MEDS ORDERED: hydrALAzine 20 MG INJ IV ONE (00:30)
[2019-02-20 01:50] VITALS: BP 165/82; RESP 16
== END 2019-02-20 01:51 | disposition home or self-care (01) ==
LOC: E/R 20:41
DX: I10 Essential (primary) hypertension (principal); E11.9 Type 2 diabetes mellitus without complications; Z79.01 Long term (current) use of anticoagulants; Z79.82 Long term (current) use of aspirin
CPT/HCPCS: 36415; 72100; 72170; 80053; 81001; 85025; 96374; 99284; J0360